=== PATIENT | female | born 1945 | race Caucasian/White ===

== ENCOUNTER → 2016-04-24 | Outpatient (CLI) | payer MEDICARE, BC ==
[2016-04-24 13:44] VITALS: BP 126/75; PULSE 122; TEMP 98; BMI 23.4
--- NOTE | 2016-05-05 19:02 | P.PN ---
Progress Note - Text DATE OF SERVICE: 04/24/2016 CHIEF COMPLAINT: Bariatric assessment. HISTORY OF PRESENT ILLNESS: Nathalie Michael is a 70-year-old female with previous history of adjustable gastric band. At her height of 5 feet 4-1/2 inches, her ideal body weight is 144 pound. Her highest weight was 209 pounds. Today she comes in weighing 139 pounds. Since her last visit January in 2015, she has gained only 2 pounds. Her total weight loss is 70 pounds. Percent excess weight loss is 108%. Body mass index has been reduced from 35.3 down to 23.5. She was recently diagnosed with tachycardia with heart rates between 130 to 140. 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 Since discontinuation of her medication, her heart rate has been persistently elevated over 110s. She reports that she drinks moderate amounts of milk. She had dobbs soup last night. For snacks she has peanut butter and crackers. Now she presents for further evaluation, particularly for weight loss. Her last band fill demonstrated approximately 6 mL in her band from January 2016. PAST MEDICAL HISTORY: 1. Morbid obesity. 2. Hyperlipidemia. 3. Hypertension. 4. History of tumor along the heart. 5. Osteoarthritis. 6. Hiatal hernia. 7. Tachyarrhythmia. PAST SURGICAL HISTORY: 1. Adenoidectomy. 2. Appendectomy. 3. Adjustable gastric band placement in 2011. 4. Hysterectomy. 5. Tonsillectomy. 6. Excision of cardiac myxoma 2015. MEDICATIONS: 1. Quinapril. 2. [place]. 3. Fenofibrate. 4. Baclofen. 5. Lipitor. 6. Amiodarone, discontinued. 7. Tylenol. 8. Eliquis. 9. Citalopram. ALLERGIES: Denies. SOCIAL HISTORY: Former tobacco user. FAMILY HISTORY: Pertinent for obesity. REVIEW OF SYSTEMS: CONSTITUTIONAL: [place] body weight 144 pounds. Present weight of 138.5 pounds. She has gained approximately 2 pounds. Percent excess weight loss 108%. Body mass index reduced from 35.4 down to 23.5. CARDIOVASCULAR: Reports tachyarrhythmia since being discontinued off her for amiodarone. GASTROINTESTINAL: Denies any gastroesophageal reflux disease. HEENT: No troubles with vision, hearing. No reports of active dysphagia. Denies any nighttime cough. ENDOCRINE: No reports of thyroid disorders or diabetes. RESPIRATORY: No reports of obstructive sleep apnea. No recent pneumonia. MUSCULOSKELETAL: She has intermittent joint pain along the lower back and hips. NEURO: No reports of stroke or seizure disorder. PSYCH: History of depression. No recent suicidal ideation. HEMATOLOGIC: Denies any active easy bruising or bleeding. PHYSICAL EXAM: VITAL SIGNS: 98.0, 122, 16, 126/75, 5 foot 4-1/2 inches, 138.5 pounds. Body mass index of 23.5. CARDIOVASCULAR: Tachycardic. ABDOMEN: Soft, nontender, nondistended. GENERAL: Well-developed female in no distress. HEENT: No scleral icterus. Extraocular movements grossly intact. Moist buccal mucosa. NECK: Supple without lymphadenopathy. CHEST: Nonlabored respirations. Equal bilateral excursions. MUSCULOSKELETAL: No clubbing, cyanosis, or edema. NEURO: No focal or lateralizing signs. Cranial nerves II through XII grossly within normal limits. ASSESSMENT: 1. Prior history of morbid obesity due to excess calories, resolved. 2. Body mass index reduced from 35.9 down to 23.5. 3. History of adjustable gastric band. 4. History of hypertension. 5. History of osteoarthritis. 6. Dietary surveillance and counseling. 7. New tachyarrhythmia on clinical exam, currently asymptomatic. PLAN: 1. On exam, she is tachycardic with a tachyarrhythmia. I have asked her to defer any band adjustment as this may invoke untoward side effect. 2. She reports being prescribed Lopressor; however, she has not started her medication. I have requested that she start her medication and assure that her heart rate is controlled prior to any future adjustment. 3. On further review of her dietary history, she is eating high carbohydrate liquids including moderate snacking. Her weight gain is likely secondary to the recent holidays and eating high carbohydrate foods. I have recommended evaluation with a bariatric dietitian, including meal plan assessment. 4. I recommend holding off of any band adjustment until nutritional guidelines are satisfied as well as cardiovascular profile is improved.
== END | disposition home or self-care (01) ==
LOC: BARWHC3 12:58
PROVIDERS: ATTEND Surgery Plastic and Reconstructive Surgery
DX: Z48.815 Encounter for surgical aftercare following surgery on the digestive system (principal); Z98.84 Bariatric surgery status; E66.01 Morbid (severe) obesity due to excess calories; Z68.23 Body mass index [BMI] 23.0-23.9, adult; R00.0 Tachycardia, unspecified
CPT/HCPCS: 99211

== ENCOUNTER → 2016-07-17 | Outpatient (CLI) | payer MEDICARE, BC ==
[2016-07-17 14:31] VITALS: BP 155/77; PULSE 64; RESP 16; TEMP 98; BMI 24.0
--- NOTE | 2016-08-12 20:27 | P.PN ---
Progress Note - Text DATE OF SERVICE: 07/17/2016 CHIEF COMPLAINT: Bariatric assessment. HISTORY OF PRESENT ILLNESS: Nathalie Michael is a 70-year-old female status post adjustable gastric band several years ago. At her height of 5 foot 4 1/2 inches, her ideal body weight is 144 pounds. Today she comes in weighing 142 pounds. She has maintained 67 pound weight loss. Her highest weight was 209 pounds. In fact, she has achieved 103% excess weight loss. Incidentally, she has gained 4 pounds since her last evaluation 3 months ago. Her body mass index is normal at 24.1. Body mass index has been reduced from 35.4 down to 24.1. Total BMI point reduction is 11.3. She comes in with hunger. Otherwise, she does report troubles with her living arrangements whereby she lives with her sister who also has an adjustable gastric band. She reports frustration with her food preparation whereby she is forced to eat high caloric foods which sabotages her weight loss. Now she comes in for further evaluation and management. PAST MEDICAL HISTORY: 1. Morbid obesity. 2. Hyperlipidemia. 3. Hypertension. 4. History of tumor along the heart. 5. Osteoarthritis. 6. Hiatal hernia. 7. Tachyarrhythmia. PAST SURGICAL HISTORY: 1. Adenoidectomy. 2. Appendectomy. 3. Adjustable gastric band placement in 2011. 4. Hysterectomy. 5. Tonsillectomy. 6. Excision of cardiac myxoma 2015. MEDICATIONS: 1. Metoprolol. 2. Klonopin. 3. Multivitamin. 4. Fenofibrate. 5. Eliquis. 6. [place]. 7. Baclofen. 8. Lipitor. 9. Tylenol. ALLERGIES: Denies. SOCIAL HISTORY: Former tobacco user. FAMILY HISTORY: Pertinent for obesity. REVIEW OF SYSTEMS: CONSTITUTIONAL: Highest weight of 209 pounds. Initial body mass index was 35.4. Body mass index now 24.1. She maintains a 67 pound weight loss. Percent excess weight loss is 103%. GASTROINTESTINAL: Denies any gastroesophageal reflux disease. Otherwise denies any dysphagia. CARDIOVASCULAR: Her tachycardia is resolved and controlled on metoprolol. No recent chest pain or heart attack. HEMATOLOGIC: She is on blood thinner of Eliquis. HEENT: No troubles with vision, hearing. No reports of active dysphagia. Denies any nighttime cough. ENDOCRINE: No reports of thyroid disorders or diabetes. RESPIRATORY: No reports of obstructive sleep apnea. No recent pneumonia. MUSCULOSKELETAL: She has intermittent joint pain along the lower back and hips. NEURO: No reports of stroke or seizure disorder. PSYCH: History of depression. No recent suicidal ideation. PHYSICAL EXAM: VITAL SIGNS: 98.0, 64, 16, 155/77. ABDOMEN: Soft, nontender. No erythema or tenderness along her port site left upper quadrant. CARDIOVASCULAR: Regular rate and rhythm. GENERAL: Well-developed female in no distress. HEENT: No scleral icterus. Extraocular movements grossly intact. Moist buccal mucosa. NECK: Supple without lymphadenopathy. CHEST: Nonlabored respirations. Equal bilateral excursions. MUSCULOSKELETAL: No clubbing, cyanosis, or edema. NEURO: No focal or lateralizing signs. Cranial nerves II through XII grossly within normal limits. ASSESSMENT: 1. Morbid obesity due to excess calories. 2. Body mass index reduced from 35.4 down to 24.1. 3. History of adjustable gastric band. 4. History of hypertension. 5. History of osteoarthritis. 6. Dietary surveillance and counseling. PLAN: 1. Recommend adjustment. She has actually steadily gained weight over the last 3 visits. 2. We did go over dietary surveillance and counseling, whereby as she is the primary person who prepare the meals that she can also select different options of foods. 3. Recommend follow-up after adjustment. PROCEDURE: Gastric band adjustment. DESCRIPTION: After verbal consent, the patient was laid supine. The skin was cleansed with alcohol swab. 1 mL of 1% lidocaine was used to anesthetize the skin over the port site. 22 gauge non-core Moyer needle was used to access the port. She had 3.2 mL in her band. 2 mL was added while the patient drank water. She denied any moderate obstructive symptoms. She tolerated the procedure well. Recommend follow-up in approximately 4 weeks or sooner should she have any further issues. Total of 5.4 mL in her port at this time. ROMAIN STOVALL MD
== END | disposition home or self-care (01) ==
LOC: BARWHC3 13:33
PROVIDERS: ATTEND Surgery Plastic and Reconstructive Surgery
DX: Z48.815 Encounter for surgical aftercare following surgery on the digestive system (principal); E66.01 Morbid (severe) obesity due to excess calories; Z68.24 Body mass index [BMI] 24.0-24.9, adult; I10 Essential (primary) hypertension; M19.90 Unspecified osteoarthritis, unspecified site; Z72.0 Tobacco use; Z79.899 Other long term (current) drug therapy; Z98.84 Bariatric surgery status; E78.5 Hyperlipidemia, unspecified
CPT/HCPCS: 99212

== ENCOUNTER → 2016-10-23 | Outpatient (CLI) | payer MEDICARE, BC ==
[2016-10-23 14:49] VITALS: BP 114/62; PULSE 60; TEMP 98.2; BMI 24.1
--- NOTE | 2016-11-16 23:27 | P.PN ---
Progress Note - Text DATE OF SERVICE: 10/23/2016 CHIEF COMPLAINT: Rectal bleeding. HISTORY OF PRESENT ILLNESS: Nathalie Michael is a 70-year-old female status post adjustable gastric band several years ago. At her height of 5 foot 4 1/2 inches, her ideal body weight is 144 pounds. Today she comes in weighing 144 pounds. She has gained 2 pounds. She has maintained 66 pound weight loss. Her highest weight was 209 pounds. In fact, she has achieved 102% excess weight loss. Her body mass index is normal at 24.2. Body mass index has been reduced from 35.4 down to 24.2. Total BMI point reduction is 11.2. She presents with history of rectal bleeding and anorectal pain. She has a family history of colon polyps. Her last colonoscopy was 5 years ago. Now she presents for further evaluation regarding rectal bleeding. PAST MEDICAL HISTORY: 1. Morbid obesity. 2. Hyperlipidemia. 3. Hypertension. 4. History of tumor along the heart. 5. Osteoarthritis. 6. Hiatal hernia. 7. Tachyarrhythmia. PAST SURGICAL HISTORY: 1. Adenoidectomy. 2. Appendectomy. 3. Adjustable gastric band placement in 2011. 4. Hysterectomy. 5. Tonsillectomy. 6. Excision of cardiac myxoma 2015. MEDICATIONS: 1. Metoprolol. 2. Klonopin. 3. Multivitamin. 4. Fenofibrate. 5. Eliquis. 6. [place]. 7. Baclofen. 8. Lipitor. 9. Tylenol. ALLERGIES: Denies. SOCIAL HISTORY: Former tobacco user. FAMILY HISTORY: Pertinent for obesity. REVIEW OF SYSTEMS: CONSTITUTIONAL: Highest weight of 209 pounds. Initial body mass index was 35.4. Body mass index now 24.2. She maintains a 66 pound weight loss. Percent excess weight loss is 102%. GASTROINTESTINAL: Denies any gastroesophageal reflux disease. Otherwise denies any dysphagia. Has rectal bleeding. Reports anorectal pain and constipation. CARDIOVASCULAR: Her tachycardia is resolved and controlled on metoprolol. No recent chest pain or heart attack. HEMATOLOGIC: She is on blood thinner of Eliquis. HEENT: No troubles with vision, hearing. No reports of active dysphagia. Denies any nighttime cough. ENDOCRINE: No reports of thyroid disorders or diabetes. RESPIRATORY: No reports of obstructive sleep apnea. No recent pneumonia. MUSCULOSKELETAL: She has intermittent joint pain along the lower back and hips. NEURO: No reports of stroke or seizure disorder. PSYCH: History of depression. No recent suicidal ideation. PHYSICAL EXAM: VITAL SIGNS: Height 5'4. Weight 143 pounds. BMI 24.2. Vital Signs 10/23/16 14:43 Temperature 98.2 F Pulse Rate 60 Blood Pressure 114/62 ABDOMEN: Soft, nontender. No erythema or tenderness along her port site left upper quadrant. CARDIOVASCULAR: Irregular rate and rhythm. GENERAL: Well-developed female in no distress. HEENT: No scleral icterus. Extraocular movements grossly intact. Moist buccal mucosa. NECK: Supple without lymphadenopathy. CHEST: Nonlabored respirations. Equal bilateral excursions. MUSCULOSKELETAL: No clubbing, cyanosis, or edema. NEURO: No focal or lateralizing signs. Cranial nerves II through XII grossly within normal limits. SKIN: Good skin turgor. Well perfused. ASSESSMENT: 1. Morbid obesity due to excess calories, resolved. 2. Body mass index reduced from 35.4 down to 24.2. 3. History of adjustable gastric band. 4. History of hypertension. 5. History of osteoarthritis. 6. Dietary surveillance and counseling. 7. History of anorectal pain. 8. Rectal bleeding. 9. History of chronic anticoagulant use. PLAN: 1. Recommend colonoscopy. She has family history of colorectal polyps and as a result will need minimal screening every 5 years. 2. With her anorectal pain and bleeding, may need hemorrhoidectomy. 3. Recommend colonoscopy prep.
== END | disposition home or self-care (01) ==
LOC: BARWHC3 14:42
PROVIDERS: ATTEND Surgery Plastic and Reconstructive Surgery
DX: K62.5 Hemorrhage of anus and rectum (principal); E66.01 Morbid (severe) obesity due to excess calories; Z68.24 Body mass index [BMI] 24.0-24.9, adult; Z71.3 Dietary counseling and surveillance; Z79.01 Long term (current) use of anticoagulants; Z98.890 Other specified postprocedural states; Z79.899 Other long term (current) drug therapy
CPT/HCPCS: 99211

== ENCOUNTER 2016-11-13 08:08 | Day surgery (SDC) | payer MEDICARE, BC ==
[2016-11-11 12:35] VITALS: BMI 24.0
[~2016-11-13 08:08] MED LIST: LACTATED RINGERS 1,000 ML IV SCH; LIDOCAINE 1% 20 ML VIAL (10MG/ML) FOR IV START INTRADERMA PRN
--- NOTE | 2016-11-13 08:38 | P.GSHP ---
History of Present Illness H&P Date: 11/13/16 CHIEF COMPLAINT: GERD HISTORY OF PRESENT ILLNESS: The patient is a 71-year-old female who presents reports gastroesophageal reflux disease. Upper endoscopy was offered for further evaluation and management. PAST MEDICAL HISTORY: Please see list. PAST SURGICAL HISTORY: Please see list. MEDICATIONS: Please see list. ALLERGIES: Please see list. SOCIAL HISTORY: No illicit drug use FAMILY HISTORY: No reports of Crohn disease or ulcerative colitis. REVIEW OF ORGAN SYSTEMS: CONSTITUTIONAL: No reports of fevers or chills. GI: Denies any blood in stools or constipation. PHYSICAL EXAM: VITAL SIGNS: Stable GENERAL: Well-developed and pleasant in no acute distress. HEENT: No scleral icterus. Extraocular movements grossly intact. Moist buccal mucosa. NECK: Supple without lymphadenopathy. CHEST: Unlabored respirations. Equal bilateral excursions. CARDIOVASCULAR: Regular rate and rhythm. Distal 2+ pulses. ABDOMEN: Soft, nondistended. MUSCULOSKELETAL: No clubbing, cyanosis, or edema. ASSESSMENT: 1. Gastroesophageal reflux disease PLAN: 1. Recommend proceeding with an upper endoscopy with possible dilatation. Past Medical History Past Medical History: Hyperlipidemia, Hypertension Additional Past Medical History / Comment(s): HX MEXOMA IN HEART-REMOVED History of Any Multi-Drug Resistant Organisms: None Reported Past Surgical History: Adenoidectomy, Appendectomy, Bariatric Surgery, Heart Catheterization, Hysterectomy, Joint Replacement, Orthopedic Surgery, Pacemaker , Tonsillectomy Additional Past Surgical History / Comment(s): lap band, mexoma in heart removed in 2015. BILAT CATARACTS REMOVED. COLONOSCOPY. BILAT TKA. RT SHOULDER REPLACEMENT Past Anesthesia/Blood Transfusion Reactions: No Reported Reaction Type of Cardiac Device: Permanent Pacemaker Device Placement Date:: 07-21 Smoking Status: Former smoker - Past Family History Father Family Medical History: Cancer Medications and Allergies Home Medications Medication Instructions Recorded Confirmed Type Citalopram Hydrobromide 20 mg PO DAILY 11/06/15 11/11/16 History [Citalopram HBr] clonazePAM [KlonoPIN] 1 mg PO HS 11/06/15 11/11/16 History Acetaminophen [Tylenol] 500 mg PO Q4-6H PRN 12/21/15 11/11/16 History Atorvastatin [Lipitor] 40 mg PO DAILY 12/21/15 11/11/16 History Multivitamins, Thera [Multivitamin] 1 tab PO DAILY 04/24/16 11/11/16 History Metoprolol Tartrate [Lopressor] 25 mg PO BID 07/17/16 11/11/16 History Apixaban [Eliquis] 5 mg PO BID 11/11/16 11/11/16 History Melatonin 20 mg PO HS 11/11/16 11/11/16 History traMADol HCL [Ultram] 50 mg PO Q6HR PRN 11/11/16 11/11/16 History Allergies Allergy/AdvReac Type Severity Reaction Status Date / Time No Known Allergies Allergy Verified 11/11/16 12:26
[2016-11-13 09:25] VITALS: RESP 16; TEMP 97.6
[2016-11-13] MEDS ORDERED: fentaNYL (PF) 50 MCG/ML 2 ML AMP IV ONE (09:39)
[2016-11-13] MEDS ORDERED: LIDOCAINE 1% INJ 10MG/ML (20 ML MDV) ONE (10:09)
[2016-11-13] MEDS ORDERED: PROPOFOL 10 MG/ML 20 ML VIAL IV ONE (10:09)
--- NOTE | 2016-11-13 10:37 | P.PCN ---
Date of Procedure: 11/13/16 Preoperative Diagnosis: Postoperative Diagnosis: Procedure(s) Performed: Implants: Indications for Procedure: Operative Findings: Description of Procedure: PREOPERATIVE DIAGNOSIS: Colonoscopy screening. Family history of colon cancer. History of anorectal pain. POSTOPERATIVE DIAGNOSIS: Colonoscopy screening. Family history of colon cancer. History of anorectal pain. Diverticulosis, scattered. OPERATION: Colonoscopy to the ileocecal valve and appendiceal orifice. SURGEON: Evon Phan MD. ANESTHESIA: MAC. INDICATIONS: The patient is a 71-year-old female who presents for colonoscopy screening. She has family history of colon polyps. Benefits and risks were described and informed consent was obtained. DESCRIPTION OF PROCEDURE: The patient had undergone Gatorade, MiraLAX and Dulcolax prep. She had been brought into the operating room and laid in the left lateral decubitus position. After adequate intravenous sedation, the rectum was examined with 2% lidocaine jelly. No lexternal hemorrhoids were encountered. The rectal tone was within normal limits. No lesions were palpated in the rectal vault. An Olympus colonoscope was advanced until the ileocecal valve and appendiceal orifice were clearly viewed. The prep was excellent with clear visualization of the mucosal folds. The scope was removed with visualization of each mucosal fold. Scattered diverticulosis was encountered. No colonic polyps were found. No evidence of focal colitis was found. Retroflexion of the scope demonstrated grade 2 internal hemorrhoids without active bleeding or inflammation. The colon was desufflated. The patient had tolerated the procedure well. Withdrawal time was over 6 minutes. FINDINGS: Internal hemorrhoids, grade 1 No external prolapsed hemorrhoids. Internal hemorrhoid, grade 2. No arteriovenous malformations. No adenomatous polyps. No focal colitis. RECOMMENDATIONS: Lower endoscopy in 5 years, 2021, with family history of colon polyps. Plan - Discharge Summary New Discharge Prescriptions: No Action clonazePAM [KlonoPIN] 1 mg PO HS Citalopram Hydrobromide [Citalopram HBr] 20 mg PO DAILY Acetaminophen [Tylenol] 500 mg PO Q4-6H PRN PRN Reason: Pain Atorvastatin [Lipitor] 40 mg PO DAILY Multivitamins, Thera [Multivitamin] 1 tab PO DAILY Metoprolol Tartrate [Lopressor] 25 mg PO BID traMADol HCL [Ultram] 50 mg PO Q6HR PRN PRN Reason: Pain Apixaban [Eliquis] 5 mg PO BID Melatonin 20 mg PO HS Discharge Medication List Citalopram Hydrobromide [Citalopram HBr] 20 mg PO DAILY 11/06/15 [History] clonazePAM [KlonoPIN] 1 mg PO HS 11/06/15 [History] Acetaminophen [Tylenol] 500 mg PO Q4-6H PRN 12/21/15 [History] Atorvastatin [Lipitor] 40 mg PO DAILY 12/21/15 [History] Multivitamins, Thera [Multivitamin] 1 tab PO DAILY 04/24/16 [History] Metoprolol Tartrate [Lopressor] 25 mg PO BID 07/17/16 [History] Apixaban [Eliquis] 5 mg PO BID 11/11/16 [History] Melatonin 20 mg PO HS 11/11/16 [History] traMADol HCL [Ultram] 50 mg PO Q6HR PRN 11/11/16 [History] Follow up Appointment(s)/Referral(s): Evon Phan MD [STAFF PHYSICIAN] - 12/04/16 Patient Instructions/Handouts: *[facility] - (Anesthesia) Endoscopy Discharge Instructions Activity/Diet/Wound Care/Special Instructions: May start Eliquis tomorrow. Discharge Disposition: HOME SELF-CARE
[2016-11-13 10:48] VITALS: BP 120/75; PULSE 62
== END 2016-11-13 11:17 | disposition home or self-care (01) ==
LOC: ORWHC2ENDO 08:08
PROVIDERS: ATTEND Surgery Plastic and Reconstructive Surgery
DX: Z12.11 Encounter for screening for malignant neoplasm of colon (principal); K57.30 Diverticulosis of large intestine without perforation or abscess without bleeding; K64.1 Second degree hemorrhoids; K64.0 First degree hemorrhoids; Z80.0 Family history of malignant neoplasm of digestive organs; Z83.71 Family history of colonic polyps; Z98.84 Bariatric surgery status; I48.91 Unspecified atrial fibrillation; Z79.01 Long term (current) use of anticoagulants; I10 Essential (primary) hypertension; E78.5 Hyperlipidemia, unspecified; Z87.891 Personal history of nicotine dependence; Z79.899 Other long term (current) drug therapy
CPT/HCPCS: J2001; J3010; J2704; G0105

== ENCOUNTER → 2016-12-18 | Outpatient (CLI) | payer MEDICARE, BC ==
--- NOTE | 2016-12-18 09:25 | BD ---
EXAMINATION TYPE: MG DEXA axial skeleton. DATE OF EXAM: 12/18/2016 CLINICAL HISTORY: M85.9 DISORDER OF BONE Height: 64.5 inches Weight: 140 pounds FRAX RISK QUESTIONS: Alcohol (3 or more units per day): no Family History (Parent hip fracture): no Glucocorticoids (More than 3mos): inhaler for asthma occasionally (Ex: prednisone, prednisolone, methylprednisolone, dexamethasone, and hydrocortisone). History of Fracture in Adulthood: yes, left forearm about 10 years ago Secondary Osteoporosis: 1. Type 1 Diabetes: no 2. Hyperthyroidism: no 3. Menopause before 45: yes 4. Malnutrition: no 5. Chronic liver disease: no Rheumatoid Arthritis: several forming machine adjuster diagnosed this, however patient does not take meds Current Tobacco Use: no RISK FACTORS HISTORY OF: History of Wrist Fracture: yes When: about 10 years ago Surgery to Wrist (left): yes When: about 10 years ago Family History of Osteoporosis: perhaps Active: yes Diet low in dairy products/other sources of calcium: at least one serving a day Postmenopausal woman: yes Take estrogen and/or progesterone medications: not now How long: very briefly Lost more than 2 inches in height since high school: unsure Frequent falls: no Poor Health: no Hyperparathyroidism: no Adrenal Insufficiency: no MEDICATIONS: Prednisone or other steroids: asthma inhaler occasionally How Long: a couple years Thyroid Medications: no Osteoporosis Medications: no Additional Medications: cholesterol meds, blood pressure meds Additional History: left shoulder replaced; lap band device beside lumbar spine currently back pain & pain down right femur , pacemaker EXAM MEASUREMENTS: Bone mineral densitometry was performed using the [employer] System. Bone mineral density as measured about the Lumbar spine is: ----- L1-L4(G/cm2): 0.944 T Score Values are as follows: ----- L2: -2.9 ----- L3: -1.9 ----- L4: -1.1 ----- L1-L4: -2.0 Bone mineral density has: Decreased -7.5% since study of: 01/23/2015 Bone mineral density about the R hip (g/cm2): 0.765 Bone mineral density about the L hip (g/cm2): 0.745 T Score values are as follows: -----R Neck: -2.0 -----L Neck: -2.1 -----R Total: -1.4 -----L Total: -1.6 Bone mineral density has: Decreased -5.8% since study of: 01/23/2015 IMPRESSION: Osteopenia NOTE: T-SCORE=SD OF THE YOUNG ADULT MEAN.
== END | disposition home or self-care (01) ==
LOC: RADBDWWP 08:11
PROVIDERS: ATTEND Internal Medicine
DX: M85.88 Other specified disorders of bone density and structure, other site (principal)
CPT/HCPCS: 77080

== ENCOUNTER → 2017-07-17 | Outpatient (CLI) | payer MEDICARE, BC ==
[2017-07-17 14:49] VITALS: BP 140/82; PULSE 75; TEMP 98.2; BMI 24.3
--- NOTE | 2017-08-03 23:29 | P.PN ---
Subjective Progress Note Date: 07/17/17 DATE OF SERVICE: 07/17/2017 CHIEF COMPLAINT: Bariatric evaluation HISTORY OF PRESENT ILLNESS: Nathalie Michael is a 71-year-old female status post adjustable gastric band several years ago. At her height of 5 foot 4 1/2 inches, her ideal body weight is 144 pounds. Today she comes in weighing 142 pounds. She has lost 2 pounds. She has maintained 67 pound weight loss. Her highest weight was 209 pounds. She has achieved 104% excess weight loss. Her body mass index is reduced from 35.7 down to 24.2. She reports increased hunger. No reports of gastroesophageal reflux disease. PAST MEDICAL HISTORY: 1. Morbid obesity, BMI 35.7, initial 2. Hyperlipidemia. 3. Hypertension. 4. History of tumor along the heart. 5. Osteoarthritis. 6. Hiatal hernia. 7. Tachyarrhythmia. PAST SURGICAL HISTORY: 1. Adenoidectomy. 2. Appendectomy. 3. Adjustable gastric band placement in 2011. 4. Hysterectomy. 5. Tonsillectomy. 6. Excision of cardiac myxoma 2015. MEDICATIONS: 1. Metoprolol. 2. Klonopin. 3. Multivitamin. 4. Fenofibrate. 5. Eliquis. 6. [place]. 7. Baclofen. 8. Lipitor. 9. Tylenol. ALLERGIES: Denies. SOCIAL HISTORY: Former tobacco user. FAMILY HISTORY: Pertinent for obesity. REVIEW OF SYSTEMS: CONSTITUTIONAL: At her height of 5 foot 4 1/2 inches, her ideal body weight is 144 pounds. Today she comes in weighing 142 pounds. She has lost 2 pounds. She has maintained 67 pound weight loss. Her highest weight was 209 pounds. She has achieved 104% excess weight loss. Her body mass index is reduced from 35.7 down to 24.2. GASTROINTESTINAL: Denies any gastroesophageal reflux disease. No gastroesophageal reflux disease. CARDIOVASCULAR: No recent chest pain or heart attack. HEMATOLOGIC: She is on blood thinner of Eliquis. HEENT: No troubles with vision, hearing. No reports of active dysphagia. Denies any nighttime cough. ENDOCRINE: No reports of thyroid disorders or diabetes. RESPIRATORY: No reports of obstructive sleep apnea. No recent pneumonia. MUSCULOSKELETAL: She has intermittent joint pain along the lower back and hips. NEURO: No reports of stroke or seizure disorder. PSYCH: History of depression. No recent suicidal ideation. PHYSICAL EXAM: VITAL SIGNS: Height 5'4. Weight 142 pounds. BMI 24.4. Vital Signs Temp 98.2 F 07/17/17 14:35 Pulse 75 07/17/17 14:35 Resp BP 140/82 07/17/17 14:35 Pulse Ox ABDOMEN: Soft, nontender. No erythema or tenderness along her port site left upper quadrant. CARDIOVASCULAR: Irregular rate and rhythm. GENERAL: Well-developed female in no distress. HEENT: No scleral icterus. Extraocular movements grossly intact. Moist buccal mucosa. NECK: Supple without lymphadenopathy. CHEST: Nonlabored respirations. Equal bilateral excursions. MUSCULOSKELETAL: No clubbing, cyanosis, or edema. NEURO: No focal or lateralizing signs. Cranial nerves II through XII grossly within normal limits. SKIN: Good skin turgor. Well perfused. ASSESSMENT: 1. Morbid obesity due to excess calories, resolved. 2. Body mass index reduced from 35.4 down to 24.2. 3. History of adjustable gastric band. 4. History of hypertension. 5. History of osteoarthritis. 6. Dietary surveillance and counseling. 7. History of anorectal pain. 8. Rectal bleeding. 9. History of chronic anticoagulant use. PLAN: 1. Recommend adjustment. 2. Bariatric dietitian visit advised. PROCEDURE: Gastric band adjustment. DESCRIPTION: After verbal consent, the patient was laid supine. The skin was cleansed with alcohol swab. 1 mL of 1% lidocaine was used to anesthetize the skin over the port site. 22 gauge non-core Moyer needle was used to access the port. She had 1 mL added to her band while she patient drank water. She denied any moderate obstructive symptoms. She tolerated the procedure well. Total of 6.4 mL in her band at this time.
== END | disposition home or self-care (01) ==
LOC: BARWHC3 10:31
PROVIDERS: ATTEND Surgery Plastic and Reconstructive Surgery
DX: Z48.815 Encounter for surgical aftercare following surgery on the digestive system (principal); I10 Essential (primary) hypertension; M19.90 Unspecified osteoarthritis, unspecified site; K62.5 Hemorrhage of anus and rectum; K62.89 Other specified diseases of anus and rectum; Z79.01 Long term (current) use of anticoagulants; Z71.3 Dietary counseling and surveillance; Z98.84 Bariatric surgery status; Z87.891 Personal history of nicotine dependence; Z79.899 Other long term (current) drug therapy; Z79.891 Long term (current) use of opiate analgesic
CPT/HCPCS: 99212

== ENCOUNTER → 2017-08-27 | Outpatient (CLI) | payer MEDICARE, BC ==
[2017-08-27 14:24] VITALS: BP 133/76; PULSE 64; RESP 14; TEMP 98.1; BMI 23.0
--- NOTE | 2017-08-27 14:42 | P.PN ---
Subjective Progress Note Date: 08/27/17 PROCEDURE: Gastric band adjustment. DESCRIPTION: After verbal consent, the patient was laid supine. The skin was cleansed with alcohol swab. 1 mL of 1% lidocaine was used to anesthetize the skin over the port site. 22 gauge non-core Moyer needle was used to access the port. She had 0.5 mL removed from her band while she patient drank water. She denied any moderate obstructive symptoms. She tolerated the procedure well. Total of 6.0 mL in her band at this time. Objective - Vital Signs Vital signs: Vital Signs Temp 98.1 F 08/27/17 14:22 Pulse 64 08/27/17 14:22 Resp 14 08/27/17 14:22 BP 133/76 08/27/17 14:22 Pulse Ox Intake & Output 08/26/17 08/27/17 08/27/17 18:59 06:59 18:59 Weight 61.779 kg
== END | disposition home or self-care (01) ==
LOC: BARWHC3 13:59
PROVIDERS: ATTEND Surgery Plastic and Reconstructive Surgery
DX: Z46.51 Encounter for fitting and adjustment of gastric lap band (principal); K95.09 Other complications of gastric band procedure; Z98.84 Bariatric surgery status
CPT/HCPCS: 99212